=== PATIENT | female | born 1970 | race Asian ===

== ENCOUNTER 2024-03-20 10:26 | Emergency (ER) | payer BC ==
[~2024-03-20] VITALS: Ht 149.9 cm; Wt 50.8 kg
[2024-03-20 10:33] VITALS: BP 112/78
[2024-03-20 10:45] VITALS: BP 114/80
[2024-03-20] MEDS ORDERED: NAPROXEN500 MG PO (10:51)
[2024-03-20] MEDS ORDERED: VALACYCLOVIR HYD1 GM PO (10:51)
[2024-03-20] MEDS ORDERED: DOXY-CAPS100 MG PO (10:51)
[2024-03-20 11:00] VITALS: BP 110/78
[2024-03-20 11:14] VITALS: BP 110/78
== END 2024-03-20 11:09 | disposition home or self-care (01) | DRG 596 ==
LOC: ED 10:26
DX: B02.9 Zoster without complications (principal)